=== PATIENT | female | born 1970 | race Caucasian/White ===

== ENCOUNTER 2017-12-21 11:02 | Emergency (ER) | payer SELFPAY | END 2017-12-21 14:57 | disposition home or self-care (01) | LOC: D.ER 11:02 | DX: J06.9 Acute upper respiratory infection, unspecified (principal); J20.9 Acute bronchitis, unspecified; N89.8 Other specified noninflammatory disorders of vagina; F17.200 Nicotine dependence, unspecified, uncomplicated ==

== ENCOUNTER 2018-08-01 06:51 | Emergency (ER) | payer SELFPAY ==
[~2018-08-01] VITALS: Ht 170.2 cm; Wt 68.2 kg
[2018-08-01 07:01] VITALS: Ht 170.2 cm; Wt 68.2 kg
[2018-08-01] MEDS ORDERED: IBUPROFEN800 MG PO (07:48)
[2018-08-01] MEDS ORDERED: CYCLOBENZAPRINE10 MG PO (07:48)
[2018-08-01] MEDS ORDERED: ACETAMINOPHEN500 M1 PO (07:48)
[2018-08-01 08:45] VITALS: BP 131/65
== END 2018-08-01 09:09 | disposition home or self-care (01) ==
LOC: D.ER 06:51
DX: M54.12 Radiculopathy, cervical region (principal); M50.30 Other cervical disc degeneration, unspecified cervical region; M79.601 Pain in right arm